=== PATIENT | female | born 1955 | race African-American/Black ===

== ENCOUNTER 2021-02-23 22:06 | Emergency (ER) | payer OTHER, SELFPAY | END 2021-02-23 23:18 | disposition home or self-care (01) | LOC: BURERS 22:06 | DX: K94.23 Gastrostomy malfunction (principal) | CPT/HCPCS: 43762 ==

== ENCOUNTER 2022-02-09 01:53 | Emergency (ER) | payer MEDICARE, SELFPAY | END 2022-02-09 02:12 | disposition home or self-care (01) | LOC: BURERS 01:53 | DX: K94.23 Gastrostomy malfunction (principal) | CPT/HCPCS: 99282 ==

== ENCOUNTER 2022-12-22 23:07 | Emergency (ER) | payer MEDICARE ==
[~2022-12-22 23:07] MED LIST: Iopamidol 370 76% 100 ML VIAL ONE
[2022-12-22] MEDS ORDERED: Ketorolac Tromethamine 30 MG/ML VIAL ONE (23:37)
[2022-12-22 23:54] LABS: Hemoglobin 11.7 g/dL (12.0-16.0); Mean Corpuscular HGB CONC 30.8 g/dL (32.0-36.0); Mean Corpuscular Hemoglobin 29.7 pg (27.0-31.0); Mean Corpuscular Volume 96.5 fl (78.0-98.0); Mean Platelet Volume 8.4 fL (7.4-10.4); Platelet Count 203 10x3/uL (130-400); RBC Distribution Width 13.5 % (11.5-14.5); Red Blood Cell (RBC) Count 3.94 mill/uL (4.20-5.40); White Blood Cell (WBC) Count 8.4 10x3/uL (4.8-10.8)
[2022-12-22 23:56] LABS: Band 4 % (5-11); Lymphocytes 12 % (21-51); MDiff Complete? YES; Monocytes 7 % (0-10); Neutrophil 76 % (42-75)
[2022-12-23 00:01] LABS: Anion Gap 14 mmol/L (10-20); BUN (Urea Nitrogen) 15 mg/dL (9.8-20.1); CRP (Inflammatory) Less than 0.50 mg/dL (= or < 0.5); Calc. Creatinine Clearance 0 mL/min (70-130); Calcium 9.6 mg/dL (7.8-10.44); Carbon Dioxide 30 mmol/L (23-31); Chloride 101 mmol/L (98-107); Estimated GFR 101; Glucose 102 mg/dL (80-115); Lipase 666 U/L (8-78); Potassium 3.9 mmol/L (3.5-5.1); Sodium 141 mmol/L (136-145)
== END 2022-12-23 02:23 | disposition short-term general hospital (02) ==
LOC: BURERS 23:07
DX: K85.90 Acute pancreatitis without necrosis or infection, unspecified (principal); I10 Essential (primary) hypertension; Z79.899 Other long term (current) drug therapy
CPT/HCPCS: 74177; 80048; 83690; 83735; 85025; 86140; 96374; J1885; Q9967

== ENCOUNTER 2023-05-25 22:02 | Emergency (ER) | payer MEDICARE, OTHER, SELFPAY ==
[~2023-05-25 22:02] MED LIST changes: +GASTROGRAFIN 30 ML BOT ONE; -Iopamidol 370 76% 100 ML VIAL ONE
== END 2023-05-25 22:59 | disposition home or self-care (01) ==
LOC: BURERS 22:02
DX: Z46.59 Encounter for fitting and adjustment of other gastrointestinal appliance and device (principal); I10 Essential (primary) hypertension
CPT/HCPCS: 43762; 74018; Q9963